=== PATIENT | male | born 1940 | race Caucasian/White ===

== ENCOUNTER 2018-05-01 19:22 | Inpatient (IN) ==
[2018-05-01 23:46] LABS: BASO# 0.05 X1000 (0.0-0.2); BASO% 0.6 % (0.0-0.8); EOS# 0.19 X1000 (0.0-0.7); EOS% 2.2 % (0.0-10.0); HEMOGLOBIN 14.8 g/dL (14.0-18.0); IMM GRAN# 0.04 X1000 (0.0-0.04); IMM GRAN% 0.5 % (0.0-0.5); LYMPH% 23.4 % (20.5-51.1); MCH 29.7 PG (27-31); MCHC 34.4 g/dL (33-37); MCV 86.2 FL (81-99); MONO# 0.67 X1000 (0.11-0.59); MONO% 7.9 % (1.7-9.3); MPV 9.9 FL (7.4-10.4); NEUT# 5.58 X1000 (1.4-6.5); NEUT% 65.4 % (42.2-75.2); PLT 219 X1000 (130-400); RBC 4.99 XMIL (4.7-6.1); RDW 12.8 % (11.5-14.5); WBC 8.53 X1000 (4.8-10.8)
[2018-05-01 23:52] LABS: INR 0.98; PROTIME 13.7 Seconds (11.0-16.0)
[2018-05-02 00:09] LABS: ALB/GLOB RATIO 1.4; ALBUMIN 3.6 g/dL (3.5-5.0); CALCIUM 9.1 mg/dL (8.8-10.2); CREATININE 1.5 mg/dL (0.7-1.2); MAGNESIUM 2.1 mg/dL (1.5-2.7); POTASSIUM 4.4 mmol/L (3.5-5.1); TOTAL BILIRUBIN 0.37 mg/dL (0.20-1.00); TOTAL PROTEIN 6.1 g/dL (6.3-8.3)
[2018-05-02 00:29] LABS: URINE SOURCE CLEAN CATCH
[2018-05-02 00:34] LABS: BILIRUBIN URINE NEGATIVE (NEGATIVE); BLOOD URINE NEGATIVE (NEGATIVE); COLOR YELLOW; GLUCOSE URINE NEGATIVE (NEGATIVE); KETONE URINE NEGATIVE (NEGATIVE); LEUKOCYTES URINE NEGATIVE (NEGATIVE); NITRITE URINE NEGATIVE (NEGATIVE); PROTEIN URINE NEGATIVE (NEGATIVE); SP GRAVITY URINE 1.022; TURBIDITY URINE CLEAR (CLEAR); UR EPITHELIAL CELLS <10 /HPF (<10); URINE BACTERIA NEGATIVE /HPF; URINE RBC <10 /HPF (<10); URINE WBC <10 /HPF (<10); UROBILINOGEN URINE NORMAL (NORMAL)
[2018-05-02] MEDS ORDERED: TYLENOL PO PRN (02:21)
[2018-05-02] MEDS ORDERED: ZOFRAN IV PRN (02:21)
[2018-05-02] MEDS ORDERED: NS 1,000 ML IV SCH (02:30)
[2018-05-02] MEDS: PRILOSEC PO SCH (05:59)
[2018-05-02 06:19] LABS: CALCIUM 8.8 mg/dL (8.8-10.2); CREATININE 1.3 mg/dL (0.7-1.2); MAGNESIUM 2.2 mg/dL (1.5-2.7); POTASSIUM 4.5 mmol/L (3.5-5.1)
[2018-05-02 06:32] LABS: HEMOGLOBIN A1C 5.8 % (4.8-6.0)
[2018-05-02] MEDS ORDERED: MORPHINE IV PRN (06:57)
--- NOTE | 2018-05-02 07:00 | Diag Imaging Result Doc PS360 ---
EXAM: CHEST-PORTABLE 05/01/2018 HISTORY: Chest pain TECHNIQUE: AP portable at 2335 COMMENT: The left hemidiaphragm is slightly elevated. The heart size and pulmonary vascularity are within normal limits. There are no focal opacities. IMPRESSION: Questionable left lower lobe atelectasis otherwise no acute disease. Electronically signed by Vinny Crook 05/02/2018 6:57 AM
--- NOTE | 2018-05-02 08:04 | EKG Report ---
Test Performed on : 05/02/2018 07:41:07 AM Test Reason : CP,Elevated Troponin Blood Pressure : / mmHG Vent. Rate : 066 BPM Atrial Rate : 066 BPM P-R Int : 208 ms QRS Dur : 140 ms QT Int : 484 ms P-R-T Axes : 072 001 232 degrees QTc Int : 507 ms Normal sinus rhythm. Possible Left atrial enlargement Left bundle branch block Abnormal ECG When compared with ECG of 01-MAY-2018 23:38, (Unconfirmed) T wave inversion now evident in Inferior leads Confirmed by Eleanor CABRAL, Reg Liang ([id number]) on 05/04/2018 10:25:24 AM
--- NOTE | 2018-05-02 09:22 | EKG Report ---
Test Performed on : 05/01/2018 11:38:22 PM Test Reason : CP Blood Pressure : / mmHG Vent. Rate : 068 BPM Atrial Rate : 068 BPM P-R Int : 198 ms QRS Dur : 142 ms QT Int : 490 ms P-R-T Axes : 061 -19 152 degrees QTc Int : 521 ms Normal sinus rhythm. Left bundle branch block Abnormal ECG When compared with ECG of 04-APR-2017 07:22, No significant change was found Confirmed by Eleanor CABRAL, Reg Liang ([id number]) on 05/04/2018 9:59:49 AM
--- NOTE | 2018-05-02 09:22 | HISTORY AND PHYSICAL ---
PRIMARY CARE PROVIDER: Dr. Souza. CHIEF COMPLAINT: Chest pain. HISTORY OF PRESENT ILLNESS: Mr. Gordon is a 78-year-old male with a past medical history most notable for gastroesophageal reflux disease, arthritis, and bladder cancer status post transurethral resection bladder tumors. The patient states that starting Sunday in the midmorning that he began having chest pain which he states was all across his right and left chest. He reports this pain was a dull, burning-type pain in nature and that it did radiate to bilateral arms and into his bilateral jaws. He reports associated symptoms of shortness of breath. He states that this chest pain started when he was at rest and has been intermittently occurring since Sunday. He states that it comes on anytime at rest and during periods of exertion. The patient states that he has been taking aspirin daily and after taking aspirin that his chest pain does improve. The patient denies any headache, dizziness, cough, fever, body aches or chills. He denies any nausea, vomiting, abdominal pain, or diarrhea. He denies any dysuria or urinary frequency. He denies any pain, numbness, tingling, or swelling in extremities. The patient denies any previous known history of chronic kidney disease. His creatinine was elevated at 1.5 with a GFR of 46. The patient reports that recently he has had antibiotics for colitis. He states that the first antibiotic he received was a 2-round course of Flagyl. Then he states he was put on Levaquin for his colitis. He also states recently in the last week he did have a round of Zithromax. He reports that all these antibiotics have been within the last month to max a month and a half. He also reports that he does not drink fluids well. The patient did notify Dr. Souza that he was having chest pain. Dr. Souza did order some labs, and the patient was found to have elevated troponin of 0.78. He also had an elevated CK of 310, CK index of 9.3, and a CK-MB of 28.9. EKG that was performed at Dr. Souza's office did show a left bundle-branch block though it does appear that the patient has had this present upon previous EKGs. The repeat performed upon his arrival to the inpatient floor [facility] did show normal sinus rhythm with a left bundle-branch block, as well. The patient denies any chest pain at present. Vital signs are within normal limits. The patient is not in any acute distress. He will be placed inpatient admission for further evaluation of a [id number] myocardial infarction. REVIEW OF SYSTEMS: A 14-point review of systems was conducted with the patient and all were negative except for pertinent positives mentioned in the above HPI. PAST MEDICAL HISTORY: 1. Gastroesophageal reflux disease. 2. Arthritis. 3. History of bladder cancer status post transurethral resection bladder tumors and postoperative instillation of mitomycin-C. 4. Recent treatment for colitis with antibiotic Flagyl x2 rounds and Levaquin. 5. Recent sinus infection with treatment with antibiotic round with Zithromax. PAST SURGICAL HISTORY: 1. Left eye surgery for cataract. 2. Right hip replacement. 3. Cystoscopy with transurethral resection bladder tumor and postoperative instillation of mitomycin-C. SOCIAL HISTORY: The patient is a former smoker. He did smoke from age 18 to 35 at 1 to 1-1/2 packs per day. He does report that he previously used to rarely occasionally drink alcohol though does not drink any alcohol at this time. There is no known history of illicit drug use. 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 FAMILY HISTORY: Positive for his mother having a history of a nerve disorder. His father at age 81. He had a history of gastric ulcers. ALLERGIES: The patient has no known allergies. HOME MEDICATIONS: 1. Aspirin 325 mg p.o. daily. 2. Meloxicam 50 mg p.o. daily. 3. Omeprazole 20 mg p.o. each morning. DIAGNOSTIC DATA/LABORATORY RESULTS: White blood cell count is 8530, hemoglobin 14.8, hematocrit 43, platelet count 219. PT 13.7, INR 0.98, PTT 29. Sodium 142, potassium 4.4, chloride 106, serum bicarbonate is 26, BUN 26, creatinine 1.5 with a GFR of 46, glucose 111, calcium 9.1, magnesium 2.1. Liver function tests within normal limits. The initial CK tonight was 95. The initial troponin tonight was 0.572, though as previously mentioned the patient did have labs performed outpatient yesterday which did show he had a troponin of 0.78. At this time, there has been some improvement. ProBNP is 1502. Urinalysis was obtained via clean catch, was within normal limits. There were no signs of infection. It was negative for glucose, ketones, blood, nitrites, leukocytes, white blood cells, or bacteria. Chest x-ray showed a questionable left lower lobe atelectasis though otherwise no acute disease. EKG did show a sinus rhythm with a left bundle-branch block at a rate of 68 with a QTc of 521. PHYSICAL EXAMINATION: VITAL SIGNS: Temperature 97.8, heart rate 72, respirations 20, blood pressure is 162/76, oxygen saturation is 99% on room air. GENERAL: Mr. Gordon is a very pleasant 78-year-old male who was resting in the inpatient bed. He was in no acute distress. He was awake, alert, and able to answer questions appropriately. HEENT: Head is atraumatic, normocephalic. Pupils are equal, round, reactive to light, were 3 mm bilaterally and brisk. Oral mucosa is moist. Oropharynx is clear. NECK: Supple, trachea midline. CARDIOVASCULAR: The patient has S1 and S2, no murmurs, gallops, or rubs appreciated, with a regular rate and rhythm. PULMONARY: The patient has symmetrical chest expansion bilaterally. Lung sounds are clear to auscultation in bilateral full bennett. ABDOMEN: Soft, nontender, nondistended. Bowel sounds were present in all 4 quadrants, were normoactive. The patient also did appear to have a very small umbilical hernia noted. This was reducible. The patient had no tenderness upon palpation. EXTREMITIES: No cyanosis, clubbing, or edema noted. Pulse, motor and sensory were intact in all extremities. Radial pulses and pedal pulses were 2+ bilaterally. INTEGUMENTARY: The patient's skin is pink, warm and dry. NEUROLOGICAL: The patient is alert and oriented x4. There do not appear to be any focal neurological deficits noted in his upper or lower extremities. ASSESSMENT AND PLAN: 1. Poo-EF-fddxunqfw myocardial infarction. For treatment of this, we will place the patient on 325 mg of aspirin daily. We have placed him on statin of Crestor 20 mg p.o. at bedtime. We have ordered morphine p.r.n. for chest pain, though as previously mentioned the patient is denying any chest pain at this time. We will continue with a series of cardiac enzymes with a lipid profile in the morning. He will be n.p.o. at this time. We will repeat EKG in the morning, as well. We have placed an order for echocardiogram. We have placed a consult with Dr. Brandon with Cardiology. It is my understanding that Dr. Brandon is aware of Mr. Gordon, and there are plans to possibly take him for a heart catheterization this morning. We will await their evaluation and further recommendations for management. We have held anticoagulation at this time given that he will have a heart cath in the morning. He will be placed on continuous cardiac telemetry with frequent vital signs and will monitor his condition closely. 2. Acute kidney injury. This could be multifactorial. The patient has no known history of previous kidney disease though he did just recently finish 4 rounds of antibiotics. He did receive a round of Flagyl x2, Levaquin x1, and most recently Zithromax x1 within the last week. He also takes meloxicam and reportedly is not good at drinking fluids. This may be a combination of antibiotics, his meloxicam, and some mild volume depletion. We will implement some gentle fluid hydration with normal saline at 100 mL/h. We will hold his meloxicam at this time and continue to follow. 3. Gastroesophageal reflux disease. We will continue his omeprazole. 4. Arthritis. As mentioned above, we are holding his meloxicam. We have placed Tylenol for pain if needed. 5. DVT prophylaxis will be provided with SCDs at this time. The patient has been placed on the medical floor with telemetry. He will have vital signs q.4 h. Will do strict intake and output. We will continue to monitor his condition closely. Further orders and recommendations pending hospital course, diagnostic studies, and physical evaluation. Dictated by WILMAN Pitts for Bobby Deshpande MD cc: MD Miguel A Quesada MD
[2018-05-02] MEDS: ASPIRIN PO SCH ×2 (09:39→12:30)
[2018-05-02] MEDS: LOPRESSOR PO SCH ×2 (12:30→20:50)
--- NOTE | 2018-05-02 12:40 | CARDIOLOGY CONSULTATION ---
DATE: 05/02/2018 REASON FOR CONSULT: Cardiology was consulted for chest pain, abnormal cardiac enzymes. HISTORY OF PRESENT ILLNESS: Mr. Gordon is a 78-year-old gentleman with a past medical history of gastroesophageal reflux disease, bladder cancer status post transurethral resection of bladder cancer in the past, comes with complaints of having recurrent episodes of chest discomfort since Sunday. He says he has had retrosternal chest discomfort which he describes as heaviness, radiating down to both arms, and, again, this was dull, burning in character. This was associated with some shortness of breath as well. Through Sunday again he had similar episodes of chest discomfort. He took aspirin which relieved his symptoms. However, on Sunday and Sunday he has continued to have episodes of retrosternal chest discomfort radiating to arms, associated with shortness of breath. He was sent to the emergency room, had abnormal troponin, and was admitted. Prior to this, he has not had any previous cardiac history. REVIEW OF SYSTEM: A 14 point review of systems was done. GI System: There is no history of hematemesis or melena. Central nervous system: No focal weakness to suggest a CVA or TIA. system: There is no dysuria or hematuria at the present time. Respiratory system: He was recently treated with antibiotics for a respiratory tract infection. He has also had treatment for colitis with Flagyl as well. PAST MEDICAL HISTORY: 1. Gastroesophageal reflux disease. 2. Arthritis. 3. Bladder cancer. 4. Left bundle branch block. 5. Sinus infection. 6. Recent infection for colitis, treated with Flagyl and Levaquin. 7. Left eye surgery. 8. Right hip replacement. 9. Cystoscopy and urethral surgery. SOCIAL HISTORY: The patient is a former smoker. He did smoke from the age of 18 to 35, 1 to 1 and half packs of cigarettes a day. No history of alcohol abuse. HOME MEDICATIONS: Aspirin 325, omeprazole 20. PHYSICAL EXAMINATION: Vital Signs: Blood pressure was 136/58. Cardiovascular system: Jugular venous pressure was normal. First and second heart sounds were heard. There was no S3 gallop. Respiratory System: Normal air entry. There are no crepitations or rhonchi. Abdomen: Soft, nontender. There was no guarding or rigidity. Bowel sounds were heard. Central nervous system: Alert and oriented. Was moving all 4 extremities. Extremities: Examination of extremities revealed no pedal edema. HEENT: Atraumatic, normocephalic. Pupils were equal and reacting to light. LABS: WBC 8.5, hemoglobin 14.8, hematocrit 43, platelet count of 219,000. Chemistry: Sodium 143, potassium 4.5, BUN 22, creatinine 1.3. ProBNP elevated at 1,502. Troponin abnormal at 0.572 and 0.599. CKs were normal. Chest x-ray revealed questionable left lower lobe atelectasis. ASSESSMENT AND PLAN: Mr. Delbert Gordon is a 78-year-old gentleman with a history of gastroesophageal reflux disease, arthritis, recent respiratory tract infection. He comes in with complaints of having recurrent episodes of chest pain and he also has a chronic left bundle branch block. Cardiac enzymes revealed non-Q-wave myocardial infarction. I had a detailed discussion with the patient. Given this, would recommend left heart catheterization. Risks, benefits, and alternatives were explained. Patient will be set up for left heart catheterization shortly. In addition to aspirin, we will add Lopressor 25 mg p.o. twice daily. We will check lipid profile as well. His recent lipid profile revealed LDL cholesterol of 191. He has been started on Crestor 20 mg a day. We will continue the Crestor. Thank you for the consult. We will follow hospital course. cc: Jeremiah Monge MD
[2018-05-02] MEDS ORDERED: HEPARIN 1000 UNITS/NS 2,000 UNIT/1,000 ML IV.SOLN ONE (12:47)
[2018-05-02] MEDS ORDERED: MORPHINE ONE (12:57)
[2018-05-02] MEDS ORDERED: VERSED ONE (12:57)
[2018-05-02] MEDS ORDERED: CLAVE TWINSITE 32 IN 11959 ONE (12:58)
[2018-05-02] MEDS ORDERED: NS 1,000 ML ONE (12:58)
[2018-05-02] MEDS ORDERED: ANESTHESIA PB SET 88 IN 5742 ONE (12:58)
[2018-05-02] MEDS ORDERED: 1/2 NS 500 ML IV SCH (15:15)
[2018-05-02] MEDS: PLAVIX PO SCH (16:43)
[2018-05-02] MEDS ORDERED: HEPARIN 25,000 UNITS/D5W 25,000 UNIT/250 ML IV.SOLN IV SCH (19:00)
[2018-05-02] MEDS ORDERED: CRESTOR PO SCH ×2 (21:00)
--- NOTE | 2018-05-02 22:41 | PROGRESS NOTE ---
DATE: 05/02/2018 SUBJECTIVE: The patient reports no chest pain. No difficulty in breathing. No palpitations. OBJECTIVE: Vital Signs: Temperature 97.6 degrees, heart rate 69, respiratory rate 16, blood pressure 175/84, O2 saturation 98% on room air. General: This is a 78-year-old male lying in bed, in no acute distress. HEENT: Head is normocephalic and atraumatic. Neck: No JVD noted. No carotid bruits. No lymphadenopathy. No thyromegaly. Cardiovascular: S1, S2 heard. No murmurs, gallops, or rubs. Regular rate and rhythm. Respiratory: Clear bilaterally to auscultation. No work of breathing or using accessory muscles. Abdomen: Soft. Nontender to palpation. Bowel sounds present. No organomegaly noted. Extremities: No clubbing, cyanosis, or edema. Peripheral pulses present in both legs. Neurological: The patient is alert, oriented x3. Moves 4 extremities. LABORATORY DATA: From yesterday, CBC was normal. From today, BMP is okay with mild elevation of creatinine 1.3. Troponin has been checked, yesterday was 0.72, today at 5:40 was 0.599. ASSESSMENT AND PLAN: 1. Emy-TP-latlxhw elevation myocardial infarction. The patient is on aspirin. The patient is on Crestor. The patient is on beta blockers and pain medication. The patient has been evaluated by Dr. Monge just before our visit, and the patient agreed to have left heart catheterization, so in an hour he is going to have that exam done. We will follow his recommendations. 2. Acute kidney injury, multifactorial. In any case, renal function is getting better. We will continue to monitor this patient closely. 3. Gastroesophageal reflux disease. We will continue with omeprazole. 4. Osteoarthritis. The patient will be on Tylenol for pain if needed. We will stop meloxicam. 5. Deep vein thrombosis prophylaxis. The patient is on SCDs. 6. Disposition: The patient is going to left heart catheterization, and we will go from there. We will see if this patient needs to be transferred out to [facility]. cc: Heron Fam MD
--- NOTE | 2018-05-03 00:05 | ECHO REPORT ---
ORDER DATE: 05/02/2018 MEASUREMENTS: Left ventricular end diastolic diameter 4.5, end systolic diameter 3.8, aortic root 3.1, left atrium 4.4. SUMMARY: 1. Technically difficult study due to limited acoustic window quality. 2. Aortic valve is trileaflet and opens normally on 2-dimensional images. Peak gradient across the aortic valve was approximately 15 mmHg. There is very mild aortic regurgitation. Mitral, tricuspid and pulmonic valves are without evidence of structural abnormality with mild mitral regurgitation. The aortic root is normal in size. 3. Normal left ventricular chamber size with mild concentric left hypertrophy is demonstrated. Estimated left ventricular ejection fraction approximately 40%. Regional wall motion analysis is challenging, given limitations of the study. There appears to be inferolateral hypokinesis. The left atrium is mildly enlarged. The right atrium and right ventricle are normal in size with grossly preserved right ventricular systolic function. 4. No pericardial effusion. 5. Appearance of inferior vena cava suggests normal central venous pressure. CONCLUSIONS: 1. Technically difficult study. 2. Very mild aortic regurgitation. 3. Mild mitral regurgitation. 4. Estimated left ventricular ejection fraction approximately 40%. Regional wall motion analysis is difficult, given limitations of the study. Inferolateral hypokinesis is evident. 5. Mild left atrial enlargement. cc: Harvey Brandon MD
[2018-05-03 05:50] LABS: HEMATOCRIT 43.1 % (42.0-52.0); MCH 29.8 PG (27-31); MCHC 34.8 g/dL (33-37); MCV 85.5 FL (81-99); RBC 5.04 XMIL (4.7-6.1); RDW 12.8 % (11.5-14.5); WBC 10.18 X1000 (4.8-10.8)
[2018-05-03 06:01] LABS: INR 0.99; PROTIME 13.9 Seconds (11.0-16.0)
[2018-05-03] MEDS: PRILOSEC PO SCH (06:07)
[2018-05-03 06:37] LABS: CALCIUM 9.5 mg/dL (8.8-10.2); CREATININE 1.2 mg/dL (0.7-1.2); POTASSIUM 4.3 mmol/L (3.5-5.1)
[2018-05-03 08:02] VITALS: BP 166/81
[2018-05-03] MEDS ORDERED: ASPIRIN PO SCH (09:00)
--- NOTE | 2018-05-03 09:17 | CARDIAC CATH REPORT ---
PROCEDURE NAME: - PROCEDURE PERFORMED: 1. Left heart catheterization with selective coronary angiography. 2. Left ventriculography. INDICATIONS: Recent ccu-FX-fpcvbpvkr myocardial infarction. ENTRY SITE: Right femoral artery. CATHETERS USED: 5-Congolese JL4, 3DRC, and angled pigtail. TECHNIQUE: After intravenous sedation with Versed and morphine, local anesthesia with lidocaine was applied over right femoral artery. Arterial access was established with placement of a 5- Congolese sheath in the right femoral artery using modified Seldinger technique. Selective coronary angiography was performed. Thereafter, left heart catheterization and left ventriculography were performed. Upon completion of procedure, arterial sheath was removed from right femoral artery, and hemostasis facilitated with manual pressure. Patient tolerated the procedure without apparent complications. FINDINGS: HEMODYNAMICS: Aortic pressure 167/76, with a mean of 115. Left ventricular pressure 163 over EDP of 13. COMMENTS ON HEMODYNAMICS: There is no significant gradient across the aortic valve demonstrated on pullback and left ventricle. ANGIOGRAPHY: 1. Left ventriculogram. Left ventricle is of normal size. Estimated left ventricular ejection fraction is approximately 40%. There is severe hypokinesis of the basal and apical at approximately 40%. There is severe hypokinesis of the mid and apical inferior wall on BREWER projection. There is no significant mitral regurgitation. 2. Left main coronary artery: The left main coronary is free of significant stenosis. 3. Left anterior descending coronary. The left anterior descending coronary demonstrates a mild (30% to 40%) ostial narrowing. The proximal left anterior descending coronary proximal to the origin of the first diagonal branch demonstrates a pkmkdamx-jx-nhinvz (75%) stenosis. First diagonal branch is a medium-size vessel and is free of significant stenosis. The proximal-to- mid left anterior descending coronary artery gives rise to a medium-size second diagonal branch. The mid left anterior descending coronary after origin of second diagonal branch demonstrates a segment of atherosclerotic narrowing. It is rather indistinct. There appears to be a focal area of moderate stenosis within this segment. 4. Left circumflex: The left circumflex coronary artery demonstrates a severe (greater 90%) focal stenosis in the mid vessel just after the origin of a medium size obtuse marginal. The distal left circumflex coronary artery is a large posterolateral branch. There is no significant stenosis in the obtuse marginal, posterolateral branch. 5. Right coronary artery is dominant but relatively small vessel. There is a mild (40%) stenosis in the proximal right coronary artery the mid right coronary demonstrates a segment of atherosclerotic narrowing that is approximately 40% in severity. CONCLUSIONS: 1. Estimated left ejection fraction approximately 40% with severe hypokinesis of mid and apical inferior wall. 2. Right-dominant coronary anatomy as described with severe multivessel coronary atherosclerosis including very severe stenosis in mid left circumflex coronary, which is a large vessel, [id number] proximal LAD stenosis, a segment of atherosclerotic narrowing, which is rather indistinct in mid left anterior descending coronary as described with moderate focal stenosis, and mild atherosclerotic disease in right coronary artery. RECOMMENDATIONS: Consultation with interventional cardiology to consider possible stage intervention on left circumflex coronary artery and left anterior descending coronary. cc: Harvey Brandon MD
[2018-05-03] MEDS: LOPRESSOR PO SCH (09:26)
[2018-05-03] MEDS: PLAVIX PO SCH (09:26)
--- NOTE | 2018-05-04 17:40 | DISCHARGE SUMMARY ---
ADMISSION DATE: 05/01/2018 DISCHARGE DATE: 05/03/2018 DISCHARGE DIAGNOSIS: 1. Recent non ST-segment myocardial infarction. 2. Acute kidney injury. 3. Gastroesophageal reflux disease. 4. Osteoarthritis. CONSULTATIONS: Dr. Monge from Cardiology. PROCEDURES: 1. Chest x-ray done on admission showed questionable left lower lobe atelectasis otherwise no acute disease. 2. Echocardiogram showed very mild aortic regurgitation, mild mitral regurgitation, estimated left ventricular ejection fraction approximately 40% with regional wall motion analysis that is difficult. 3. Cardiac catheterization showed estimated ejection fraction of 40% with severe hypokinesis of mid and apical inferior wall in right dominant coronary anatomy with severe multivessel coronary artery or sclerosis. HOSPITAL COURSE: This is a 78-year-old male with past medical history of gastroesophageal reflux disease, arthritis and bladder cancer who presented to emergency department complaining of chest pain dull burning type that radiated to bilateral arms, patient admitted to the hospital because of the chest pain and we started to trend troponin and those started to getting higher, evaluated by Cardiology, they order left heart catheterization as we mentioned above and considering all findings there it was told that this patient needs to be transferred to [facility] for intervention cardiology to most likely place stents versus possible cardiac surgery as well. At this point patient is going to be sent to [facility]. Will continue to monitor this patient closely. cc: Heron Fam MD
== END 2018-05-03 10:10 | disposition short-term general hospital (02) | DRG 281 ==
LOC: DIRADM 19:22 → SUATTDRO 19:22 → 4N 20:50 → 3S 05-02 15:42
PROVIDERS: ATTEND Internal Medicine
CPT/HCPCS: 36415; 71010; 71045; 80048; 80053; 80061; 81001; 82550; 82553; 83036; 83721; 83735; 83880; 84484; 85025; 85027; 85610; 85730; 93005; 93010; 93306; 93458; 94761; A9270; C8929; J1644; J2250; J2270; J7030; Q9957; Q9967

== ENCOUNTER 2018-06-05 13:02 | Observation (INO) ==
[2018-06-05] MEDS ORDERED: NITROGLYCERIN TOP ONE (13:17)
--- NOTE | 2018-06-05 13:29 | EKG Report ---
Test Performed on : 06/05/2018 1:08:37 PM Test Reason : cp Blood Pressure : / mmHG Vent. Rate : 086 BPM Atrial Rate : 086 BPM P-R Int : 212 ms QRS Dur : 146 ms QT Int : 446 ms P-R-T Axes : 077 013 049 degrees QTc Int : 533 ms Sinus rhythm. with 1st degree AV block. Left bundle branch block Abnormal ECG When compared with ECG of 02-MAY-2018 07:41, T wave inversion no longer evident in Inferior leads T wave inversion less evident in Lateral leads Unconfirmed Result
[2018-06-05 13:55] LABS: INR 0.96; PROTIME 13.6 Seconds (11.0-16.0)
[2018-06-05 14:04] LABS: ALB/GLOB RATIO 2.2; ALBUMIN 4.7 g/dL (3.5-5.0); CALCIUM 9.4 mg/dL (8.8-10.2); CREATININE 1.3 mg/dL (0.7-1.2); MAGNESIUM 2.3 mg/dL (1.5-2.7); POTASSIUM 4.4 mmol/L (3.5-5.1); TOTAL BILIRUBIN 0.86 mg/dL (0.20-1.00); TOTAL PROTEIN 6.8 g/dL (6.3-8.3)
[2018-06-05 14:15] LABS: BASO# 0.04 X1000 (0.0-0.2); BASO% 0.4 % (0.0-0.8); EOS# 0.02 X1000 (0.0-0.7); EOS% 0.2 % (0.0-10.0); HEMATOCRIT 42.7 % (42.0-52.0); HEMOGLOBIN 15.1 g/dL (14.0-18.0); LYMPH# 0.72 X1000 (1.2-3.4); LYMPH% 8.1 % (20.5-51.1); MCH 29.6 PG (27-31); MCHC 35.4 g/dL (33-37); MCV 83.7 FL (81-99); MONO# 0.44 X1000 (0.11-0.59); MONO% 4.9 % (1.7-9.3); MPV 9.9 FL (7.4-10.4); NEUT# 7.71 X1000 (1.4-6.5); NEUT% 86.4 % (42.2-75.2); PLT 182 X1000 (130-400); RDW 12.9 % (11.5-14.5); WBC 8.93 X1000 (4.8-10.8)
--- NOTE | 2018-06-05 14:23 | Diag Imaging Result Doc PS360 ---
CHEST-PORTABLE - 06/05/2018 INDICATION: cp COMPARISON: 05/01/2018 FINDINGS: The lungs are normally expanded and clear. Heart size and mediastinal contours are normal. No pneumothorax or pleural effusion. IMPRESSION: Negative exam. Electronically signed by Cortes Hopkins 06/05/2018 2:21 PM
--- NOTE | 2018-06-05 15:49 | PROVIDER DOCUMENTATION ---
This chart was entered by Vashti Sanchez Scribe, acting as scribe for Nitesh Barreto MD. HPI-Chest Pain - General Chief Complaint: Chest Pain Stated Complaint: CHEST PAIN Time Seen by Provider: 06/05/18 13:14 Source: patient, family () Allergies/Adverse Reactions: Patient Allergies Allergy/AdvReac Type Severity Reaction Status Date / Time No Known Allergies Allergy Verified 04/11/17 12:28 Home Medications: Home Medication List Medication Instructions Recorded Confirmed Last Taken Type Meloxicam [Mobic] 15 mg PO DAILY 04/11/17 05/01/18 04/15/17 History 15 Omeprazole [Prilosec] 20 mg PO QAM 04/11/17 05/01/18 04/22/17 07:00 History 20 Acetaminophen [Tylenol] 1,000 mg PO Q6H tablet 04/24/17 Unknown Rx Aspirin 325 mg PO DAILY tablet 04/24/17 05/01/18 Unknown Rx - History of Present Illness-CP Nature of Presenting Problem: 78 yowm presents to the ed with onset of chest pain this am.pt sts had VT x3 weeks prior and has cardiac stents. pt took x2 nitro and sts eased the pain some but is still present. pt sts pain in chest radiates to jaw and rt ear Location: reports: other (rt sided anterior chest pain) Chest Pain Radiation: reports: jaw, other (ear) Quality of Pain: reports: pressure, tightness Severity in ED: moderate Onset/Duration: this morning Timing: still present Context/Activities at Onset: reports: light activity Modifying Factors: improves with: nothing Associated Symptoms: denies: back pain, dizziness, headache, nausea, shortness of breath, vomiting Nitro Today/Relief: 0.4 mg x 2, mild relief Aspirin Treatment Today: 325 mg x 1 Prior Chest Pain/Cardiac Workup: reports: heart attack Similar Symptoms Previously?: Yes Recently Seen Here or By Another Healthcare Provider: Yes Review of Systems - Adult - REVIEW OF SYSTEMS - ADULT Constitutional: denies: chills, fever Eyes: denies: blurred vision, double vision Ears, Nose, Mouth & Throat: reports: see HPI, ear pain (rt side), other (jaw pain rt side) Cardiovascular: reports: see HPI, chest pain. denies: palpitations, syncope Respiratory: denies: cough, shortness of breath, wheezing Gastrointestinal: denies: abdominal pain, diarrhea, nausea, vomiting Genitourinary: reports: no symptoms reported Musculoskeletal: reports: joint pain (rt sided jaw pain). denies: back pain, neck pain Integumentary: reports: no symptoms reported Neurological: denies: dizziness/vertigo, headache/migraines Psychiatric: reports: no symptoms reported Endocrine: reports: no symptoms reported Hematologic/Lymphatic: reports: no symptoms reported Allergic/Immunologic: reports: no symptoms reported All Other Systems: Reviewed and Negative Past History - Adult - PAST MEDICAL HISTORY-ADULT Review of Records: reports: Old Records Reviewed, Nursing Assessment Review, Medications Reviewed, Social history reviewed & non-contributory. Major Childhood Illnesses: reports: denies history Cardiovascular: reports: VT Respiratory: reports: denies history Obstetrical/Gynecological: reports: denies history Genitourinary: reports: cancer (bladder 2017) Musculoskeletal: reports: denies history Neurological: reports: denies history Psychiatric: reports: denies history Endocrine/Immune: reports: denies history Other Conditions: reports: denies history - PRIOR SURGERIES/PROCEDURES Surgical/Procedure History: reports: other (bladder CA) - IMMUNIZATION STATUS Childhood Immunizations: See Nurse Assessment Flu Vaccine: See Nurse Assessment - FAMILY HISTORY Family History: reviewed, not pertinent - SOCIAL HISTORY Smoking: quit greater than 1 year Substance Use: denies Living Situation: family Physical Exam-General - PHYSICAL EXAM-ADULT Initial Vital Signs Reviewed: Yes - CONSTITUTIONAL General Appearance: alert, anxious - EYES Eyes: PERRL/EOMI, pink conjunctivae - HEAD, EARS, NOSE, MOUTH & THROAT HENMT: normocephalic/atraumatic, moist mucous membranes, normal ENT inspection - NECK Neck: full range of motion, supple, normal inspection - RESPIRATORY Respiratory: chest non-tender, lungs clear, normal breath sounds - CARDIOVASCULAR Cardiovascular: normal peripheral pulses, regular rate, rhythm - CHEST (BREASTS) Chest/Breast: deferred - GASTROINTESTINAL (ABDOMEN) Abdominal Exam: normal bowel sounds, non tender, soft - LYMPHATIC Lymphatic: no adenopathy - MUSCULOSKELETAL Back Exam: normal inspection, no CVA tenderness, no vertebral tenderness Extremity: normal range of motion, non-tender, normal gait, normal inspection - SKIN Integumentary: normal color, normal turgor, warm/dry - NEUROLOGIC Neurologic: grossly normal - PSYCHIATRIC Psych/Mental Status: normal mood/affect, normal thought content, normal thought process, oriented x 3 - HEART Score HEART Score: History: Highly Suspicious HEART Score: ECG: Non-Specific Repolarization Disturbance/LBBB/PM HEART Score: Age: > or = 65 Years HEART Score: Risk Factors for Atherosclerotic Disease: > or = 3 Risk Factors or History of Atherosclerotic Disease HEART Score: Troponin: < or = Normal Limit Total HEART Score:: 7 Progress - PLAN OF CARE/RESULTS Progress/Plan/Lab Results: Vital Signs - 8 hr 06/05/18 13:14 06/05/18 14:01 06/05/18 14:26 Temperature 97.8 F Pulse Rate 86 79 80 Respiratory Rate 16 16 18 Blood Pressure 169/80 171/92 O2 Sat by Pulse Oximetry 99 95 95 06/05/18 14:32 06/05/18 15:02 06/05/18 15:32 Temperature Pulse Rate 78 89 85 Respiratory Rate 18 21 22 Blood Pressure 150/87 124/78 145/85 O2 Sat by Pulse Oximetry 95 97 97 Laboratory Results - last 24 hr 06/05/18 06/05/18 06/05/18 13:28 13:28 13:28 WBC 8.93 RBC 5.10 Hgb 15.1 Hct 42.7 MCV 83.7 MCH 29.6 MCHC 35.4 RDW Std Deviation 12.9 Plt Count 182 MPV 9.9 Neut % (Auto) 86.4 H Lymph % (Auto) 8.1 L [place] % (Auto) 4.9 Eos % (Auto) 0.2 Baso % (Auto) 0.4 Neut # (Auto) 7.71 H Lymph # (Auto) 0.72 L [place] # (Auto) 0.44 Eos # (Auto) 0.02 Baso # (Auto) 0.04 PT INR Sodium 141 Potassium 4.4 Chloride 105 Carbon Dioxide 24 L Anion Gap 12 BUN 19 Creatinine 1.3 H Estimated GFR/1.73 m2 54 BUN/Creatinine Ratio 15 Glucose 150 H Calculated Osmolality 286 Calcium 9.4 Magnesium 2.3 Total Bilirubin 0.86 AST 27 ALT 20 Alkaline Phosphatase 75 Creatine Kinase 121 Troponin T Pho-S-Qsqrfeikzlo Pept 397 Total Protein 6.8 Albumin 4.7 Globulin 2.1 Albumin/Globulin Ratio 2.2 06/05/18 06/05/18 13:28 13:28 WBC RBC Hgb Hct MCV MCH MCHC RDW Std Deviation Plt Count MPV Neut % (Auto) Lymph % (Auto) [place] % (Auto) Eos % (Auto) Baso % (Auto) Neut # (Auto) Lymph # (Auto) [place] # (Auto) Eos # (Auto) Baso # (Auto) PT 13.6 INR 0.96 Sodium Potassium Chloride Carbon Dioxide Anion Gap BUN Creatinine Estimated GFR/1.73 m2 BUN/Creatinine Ratio Glucose Calculated Osmolality Calcium Magnesium Total Bilirubin AST ALT Alkaline Phosphatase Creatine Kinase Troponin T 0.036 Txi-Y-Ugzacoeskak Pept Total Protein Albumin Globulin Albumin/Globulin Ratio Orders Category Date Time Status Saline Loc NOW Care 06/05/18 13:15 Active CHEST-PORTABLE [RAD] Stat Exams 06/05/18 13:16 Completed CBC WITH ELECTRONIC DIFF [HEME] Stat Lab 06/05/18 13:28 Completed CK PROFILE [SP CHEM] Stat Lab 06/05/18 13:28 Completed COMPREHENSIVE METABOLIC PANEL [CHEM] Stat Lab 06/05/18 13:28 Completed MAGNESIUM [CHEM] Stat Lab 06/05/18 13:28 Completed PRO B-NATRIURETIC PEPTIDE Stat Lab 06/05/18 13:28 Completed PROTIME WITH INR [COAG] Stat Lab 06/05/18 13:28 Completed TROPONIN T Stat Lab 06/05/18 13:28 Completed TROPONIN T Stat Lab 06/05/18 15:35 Received Nitroglycerin Med 06/05/18 13:17 Discontinued 1 inch TOP NOW ONE EKG [EKG] Stat Ther 06/05/18 13:15 Draft Result Diagrams: 06/05/18 13:28 06/05/18 13:28 - REASSESSMENT Reassessment #1 Time Reassessed: 14:26 (dr barreto at bedside) Status: improving - EKG 1 Time of EKG reading by physician:: 13:08 EKG Read and Signed by:: Nitesh Barreto EKG Interpretation (*Must complete 3 of following elements*): Abnormal Rate: 86 Rhythm: sinus rhythm with 1st degree AV block QRS: LBB PA Interval: normal ST Wave: normal Prior EKG Comparison: unchanged from prior (05/02/18) 2 Time of EKG reading by physician:: 15:33 EKG Read and Signed by:: Nitesh Barreto EKG Interpretation (*Must complete 3 of following elements*): Abnormal Rate: 86 Rhythm: NSR QRS: LBB, LVH PA Interval: prolonged ST Wave: non-specific ST changes Prior EKG Comparison: unchanged from prior - XRAY 1 XRAY: Bilateral XRAY Study: Chest Impression: See EMR Report (CHEST-PORTABLE - 06/05/2018 INDICATION: cp COMPARISON: 05/01/2018 FINDINGS: The lungs are normally expanded and clear. Heart size and mediastinal contours are normal. No pneumothorax or pleural effusion. IMPRESSION: Negative exam. Electronically signed by Cortes Hopkins 06/05/2018 2:21 PM 06/05/18 1421 Interpreting Physician: Cortes Hopkins MD Dictated Date/Time: 06/05/18 1421 cc: Nitesh Barreto MD; Miguel A Souza MD) - CONSULTS/PCP/HOSPITALIST Notification #1 *Consult/PCP/Hospitalist*: dr arguello cardio Time Discussed: 15:15 (spoe with [employer] and will have dr arguello call dr barreto back) Consult Disposition: Will see in ED, other (phone consult) #2 Consult: hospitalist dr galeana Time Discussed: 15:42 Consult Disposition: Admit Departure - Departure Date of Disposition Decision: 06/05/18 Time of Disposition Decision: 15:48 DIAGNOSIS: Unstable angina pectoris due to coronary arteriosclerosis Disposition: ADMITTED INPATIENT 09 Certified Medical Emergency: Emergent Condition: Fair Referrals and Follow-Ups: Miguel A Souza MD [Primary Care Provider] - - Critical Care Note This patient required my direct & personal management of CC.: No Attestation - Physician/ MARQUISE Attestation Patient care was provided by Advanced Practice Provider:: No The physician spent face to face time with patient:: Yes Advanced Practice Provider documentation review:: Supervising physician onsite and consulted in the evaluation and care of this patient. The physician did have a face to face encounter with the patient. This chart was documented by the indicated scribe, (Vashti Sanchez Scribe) and accurately reflects the services I performed and decisions made by me, Nitesh Barreto MD, as attested by the provider's signature.
[2018-06-05] MEDS ORDERED: 1/2 NS 1,000 ML IV ONE (16:23)
--- NOTE | 2018-06-05 16:34 | EKG Report ---
Test Performed on : 06/05/2018 4:28:54 PM Test Reason : chest pain Blood Pressure : / mmHG Vent. Rate : 084 BPM Atrial Rate : 084 BPM P-R Int : 202 ms QRS Dur : 150 ms QT Int : 440 ms P-R-T Axes : 054 -13 133 degrees QTc Int : 519 ms Normal sinus rhythm. Left bundle branch block Abnormal ECG When compared with ECG of 05-JUN-2018 15:25, (Unconfirmed) No significant change was found Confirmed by Michelle CABRAL, Arturo Liang ([id number]) on 06/06/2018 7:02:31 AM
--- NOTE | 2018-06-05 16:48 | CARDIOLOGY CONSULTATION ---
DATE: 06/05/2018 HISTORY OF PRESENT ILLNESS: Patient is a 78-year-old gentleman with known coronary artery disease, who underwent stent placement for non-Q-wave myocardial infarction on 05/03/2018. He has history of hypertension, abnormal EKG. Was doing well. I recently saw him back in the office. His blood pressure was elevated. I have added Cozaar 100 mg to his medical regimen. When I saw him in the office, his blood pressure was 172/100. He did not have chest pain at that time. He was in the gym, had worked out, had right shoulder pain radiating to the neck. In addition subsequently, he had mild retrosternal chest discomfort. He took a nitroglycerin tablet, his intensity of pain decreased, and about 45 minutes later, he took another nitroglycerin tablet and subsequently came to the emergency room. Total duration of the pain was about an hour and half. He was given nitroglycerin paste, and he has been pain-free. Electrocardiogram revealed left bundle branch block. At the time of my examination, he was pain free. He says his blood pressures have been elevated at home as well. He has been taking part in the study following his intervention, and he had taken Brilinta and stopped after a month. He is currently on 325 mg of aspirin daily. He does not complain of any palpitations. There is no dizziness or syncope. REVIEW OF SYSTEMS: A 14 point review of system was done.Gastrointestinal system : There is no history of nausea/vomiting, diarrhea. There is no history of hematemesis or melena. Central nervous system: No focal weakness to suggest a CVA, TIA. Genitourinary system : There is no dysuria or hematuria. SOCIAL HISTORY: The patient does not smoke. There is no history of alcohol abuse. HOME MEDICATIONS: Aspirin 325. Metoprolol 25 mg b.i.d. Cozaar 100. Crestor 20. Mobic. Prilosec OTC. PAST MEDICAL HISTORY: 1. Non-Q-wave myocardial infarction. 2. Cardiac catheterizations. On 05/03/2018 intervention was performed. Patient had a drug- eluting stent to the mid left anterior descending artery and the proximal to mid left circumflex artery. 3. Left bundle branch block. 4. Hypertension. 5. Former smoker. Had quit more than a year back. 6. History of bladder cancer status post transurethral resection. PHYSICAL EXAMINATION: Vital signs: On examination, blood pressure in the hospital when he came in was 150/87. Cardiovascular system: Normal jugular venous pressure. There was no thyromegaly. There was no carotid bruit. First and second heart sounds were heard. There is no S3, S4 or gallop. Respiratory system: Normal air entry. There is no crepitations or rhonchi. Abdomen: Soft, nontender. There was no guarding or rigidity. Bowel sounds were heard. Central nervous system: Alert and oriented. Was moving all 4 extremities. Extremities: Examination of extremities revealed no pedal edema. HEENT: Atraumatic, normocephalic. Pupils were equal and reacting to light. DIAGNOSTIC STUDIES: Glucose 150. Troponin 0.03. ProBNP 397. CK 121. Hematology: RBC 5.1, hemoglobin 15, WBC 8.9, platelet count 182,000. ASSESSMENT AND PLAN: 1. Mr. Delbert Gordon is a 78-year-old gentleman who had non-Q-wave myocardial infarction and underwent stent placement to left anterior descending artery and circumflex artery on 05/03/2018, has history of hypertension, ex-smoker, left bundle branch block. Had episode of chest pain after he exercised, lasted for about of 45 minutes which decreased intensity, subsequently continued for another 45 minutes, retrosternal pain with radiation to the right neck and the right arm. At the time of my examination, patient was pain free. Patient is comfortable at the present time. Has unstable angina. Recommendations: A. We will get serial cardiac enzymes. B. If he has any further chest pain or has abnormal cardiac enzymes will plan for invasive coronary angiography. 2. Hypertension has been a problem. I had added Cozaar 100 mg when I saw him. We will increase his beta-blockers to 50 mg twice daily. We will get renal duplex studies in the morning to rule out renal artery stenosis. 3. As far as his dual-antiplatelet therapy is concerned, he was on aspirin and Brilinta and took part in a research study. He is currently on 325 mg of aspirin, and the study is at its completion; however, given his symptoms, his family discussed and wanted to get an opinion of starting him back on antiplatelet therapy. However, as far as patient was concerned, the cost of Brilinta was prohibitive. We will add Plavix 75 mg a day to his medical regimen. In addition we will give him Lovenox. 4. He has history of bladder cancer which is stable. 5. Gastroesophageal reflux disease (GERD). Symptoms are under control. 6. Hypercholesterolemia. He is on Crestor recommend continuing medication. Thank you, will follow hospital course. cc: Jeremiah Monge MD MTD
[2018-06-05] MEDS ORDERED: LOVENOX SUBQ ONE ×2 (17:00→18:00)
[2018-06-05] MEDS ORDERED: MISC. PHARMACY COMMUNICATION SCH (17:15)
[2018-06-05] MEDS ORDERED: MORPHINE IV PRN (17:43)
--- NOTE | 2018-06-05 17:57 | HISTORY AND PHYSICAL ---
PRIMARY CARE PROVIDER: Dr. Miguel A Souza CHIEF COMPLAINT: Chest pain. HISTORY OF PRESENT ILLNESS: Mr. Gordon is a 78-year-old male who was recently discharged from our service last month for a non-ST elevation SC at which time he had a diagnostic heart catheterization done at our facility which revealed multivessel obstructive coronary disease. He was subsequently transferred to [facility] where he received 2 stents. He has been in his normal state of health since that time. Today he was exercising and felt a right- sided chest pain radiating up to the right side of his jaw. He stopped working out and took a nitroglycerin which relieved the pain from an 8 to a 5, he waited a few more minutes and took another which relieved his pain somewhat more, but then decided to come to the hospital for further evaluation. In the hospital E.R. here he received a nitroglycerine patch which ultimately relieved his pain completely. His EKG does show a left bundle branch block but this is unchanged from previous and his cardiac enzymes are negative. Dr. Monge with Cardiology had been consulted already and feels that the patient would benefit from an observation admission and a stress test in the morning. Mr. Grodon has no other symptoms. He denies any nausea or vomiting. No dyspnea. He denies any fever or chills or lower extremity edema. No problems urinating or having bowel movements. The rest of his labs are largely unremarkable. He does have a creatinine of 1.3 which appears to be right at baseline since the beginning of the year. Overall , he is stable and will be admitted for observation status. PAST MEDICAL HISTORY: 1. Recent non-ST elevation SC, status post coronary stenting at [facility]. 2. Renal insufficiency. 3. GERD. 4. Osteoarthritis. 5. Borderline diabetes mellitus. Hemoglobin A1c was 5.8% last month. 6. History of bladder cancer, status post transurethral resection of bladder tumor. SURGICAL HISTORY: He has had coronary stenting, left eye surgery for cataract, right hip arthroplasty, and cystoscopy with transurethral resection of a bladder tumor. SOCIAL HISTORY: He quit smoking 30+ years ago. No alcohol or drug use. He is retired from [employer]. FAMILY HISTORY: Noncontributory. REVIEW OF SYSTEMS: A 14 point review of systems was obtained and found to be negative with the exception of the HPI. HOME MEDICATIONS: Not compiled as of yet. PHYSICAL EXAMINATION: VITAL SIGNS: Blood pressure is 132/84, heart rate 71, respiratory rate 25, O2 sat 98% on room air, and temperature 97.8. GENERAL: Well-developed, well-nourished, male lying in a hospital bed in no acute distress. NEUROLOGIC: Awake, alert, and oriented. Follows commands without focal deficits. HEENT: The head is atraumatic and normocephalic. His pupils are equal, round, and reactive to light. Oral mucosa is moist. NECK: Trachea is midline. No JVD. CHEST: Clear to auscultation bilaterally. CV: Regular rate and rhythm. S1, S2 is noted. No murmurs. GI: Soft and nondistended. Bowel sounds active. EXTREMITIES: No edema. Pulses are 1+ bilaterally. DIAGNOSTIC DATA: Chest x-ray is negative. EKG: Left bundle branch block. SIGNIFICANT LAB DATA: CO2 24, creatinine 1.3, glucose 150, troponin 0.036, proBNP 397, and CK 121, otherwise unremarkable. ASSESSMENT AND PLAN: 1. Chest pain: We will admit for observation status, continue ASA, plavix and statin, we will trend his enzymes and keep him NPO for stress test in the AM. Dr. Monge is following. We will continue monitoring his telemetry and monitor hemodynamics closely. 2. Renal insufficiency: Appears to be somewhat of a chronic issue. Creatinine was noted to be 1.3 today but it was 1.4 on 04/30/2018. We have added some light IV fluids per recommendation of Dr. Monge and we will monitor his creatinine daily. 3. History of bladder cancer: Aware. 4. Hypertension. Continue home medications. Stable. 5. Deep vein thrombosis prophylaxis with Lovenox. Further recommendations to follow. ADDENDUM: At approximately 1630 on 06/05/18, Mr. Gordon's 2cd troponin become critical/positive. Dr. Monge was immediately notified and therapeutic lovenox was ordered. Dr. Monge has arranged for transport to [facility] tomorrow morning. The patient will be kept NPO and we will order a transfer to [facility] in the meantime. We will watch him closely. Dictated by WILMAN Gayle for Barbra Cat MD cc: WILMAN Gayle, MD MTDD
[2018-06-05] MEDS ORDERED: LOVENOX SUBQ SCH (18:00)
[2018-06-05] MEDS: PLAVIX PO SCH (18:02)
[2018-06-05 18:11] LABS: CK INDEX 16.4 (0.0-2.5); CK-MB 72.09 ng/mL (0.0-5.0)
--- NOTE | 2018-06-05 18:26 | Diag Imaging Result Doc PS360 ---
EXAM: US DUPLEX RENAL ARTY/VEIN LMTD - 06/05/2018 HISTORY: htn, cp TECHNIQUE: Ultrasound duplex renal artery limited COMPARISON: None. FINDINGS: The right renal artery ratio is 0.44. The left renal artery ratio is 0.27. The right resistive index is 62. The left resistive index is 66. The right kidney measures 10.4 x 5.6 x 5.2 cm in size. The left kidney measures 11.6 x 5.2 x 5.1 cm in size. There is a 1.3 cm parapelvic right renal cyst. There is no solid renal mass, discrete renal stone, or hydronephrosis identified. IMPRESSION: No indication of renal artery stenosis. Electronically signed by Agusto Louis 06/05/2018 6:23 PM
[2018-06-05] MEDS: NITROGLYCERIN TOP SCH ×2 (18:29→23:27)
[2018-06-05] MEDS ORDERED: CRESTOR PO SCH (21:00)
[2018-06-05] MEDS ORDERED: LIPITOR PO SCH (21:00)
[2018-06-05] MEDS: LOPRESSOR PO SCH (21:22)
[2018-06-06 00:11] LABS: CK INDEX 15.1 (0.0-2.5)
[2018-06-06 04:11] VITALS: BP 141/77
[2018-06-06] MEDS: NITROGLYCERIN TOP SCH (05:06)
[2018-06-06 05:51] LABS: HEMATOCRIT 38.1 % (42.0-52.0); HEMOGLOBIN 13.3 g/dL (14.0-18.0); MCH 29.9 PG (27-31); MCHC 34.9 g/dL (33-37); MCV 85.6 FL (81-99); RBC 4.45 XMIL (4.7-6.1); RDW 12.8 % (11.5-14.5); WBC 8.72 X1000 (4.8-10.8)
[2018-06-06] MEDS ORDERED: LOVENOX SUBQ SCH (06:00)
[2018-06-06 06:14] LABS: CALCIUM 9.8 mg/dL (8.8-10.2); CREATININE 1.4 mg/dL (0.7-1.2); POTASSIUM 4.5 mmol/L (3.5-5.1)
[2018-06-06 06:42] LABS: CK INDEX 12.3 (0.0-2.5); CK-MB 76.49 ng/mL (0.0-5.0)
[2018-06-06] MEDS: PLAVIX PO SCH (07:30)
[2018-06-06] MEDS: LOPRESSOR PO SCH (07:30)
--- NOTE | 2018-06-06 07:56 | EKG Report ---
Test Performed on : 06/05/2018 11:12:18 PM Test Reason : chest pain Blood Pressure : / mmHG Vent. Rate : 068 BPM Atrial Rate : 068 BPM P-R Int : 220 ms QRS Dur : 152 ms QT Int : 484 ms P-R-T Axes : 067 -09 141 degrees QTc Int : 514 ms Sinus rhythm. with 1st degree AV block. Left bundle branch block Abnormal ECG When compared with ECG of 05-JUN-2018 16:28, (Unconfirmed) No significant change was found Confirmed by Michelle CABRAL, Arturo Liang ([id number]) on 06/06/2018 12:21:03 PM
--- NOTE | 2018-06-06 08:07 | EKG Report ---
Test Performed on : 06/06/2018 05:59:49 AM Test Reason : chest pain Blood Pressure : / mmHG Vent. Rate : 059 BPM Atrial Rate : 059 BPM P-R Int : 234 ms QRS Dur : 148 ms QT Int : 492 ms P-R-T Axes : 055 -14 164 degrees QTc Int : 487 ms Sinus bradycardia. with 1st degree AV block. Left bundle branch block Abnormal ECG When compared with ECG of 05-JUN-2018 23:12, (Unconfirmed) No significant change was found Confirmed by Michelle CABRAL, Arturo Liang ([id number]) on 06/06/2018 12:21:10 PM
[2018-06-06] MEDS ORDERED: ASPIRIN PO SCH (09:00)
[2018-06-06] MEDS ORDERED: COZAAR PO SCH (09:00)
== END 2018-06-06 07:47 | disposition short-term general hospital (02) ==
LOC: 3N 13:02 → ED 13:02 → 3N 16:34 → 3S 22:53
PROVIDERS: ATTEND Internal Medicine
CPT/HCPCS: 71010; 71045; 80048; 80053; 82550; 82553; 83735; 83880; 84484; 85025; 85027; 85610; 93005; 93010; 93976; 99285; A9270; J1650